=== PATIENT | female | born 1985 | race African-American/Black ===

== ENCOUNTER 2016-08-24 00:46 | Inpatient (IN) | payer MEDICAID, OTHER ==
[2016-08-24] MEDS ORDERED: SUBLIMAZE IV ONE (03:42)
[2016-08-24] MEDS ORDERED: STADOL IV PRN (03:44)
[2016-08-24] MEDS ORDERED: LACTATED RINGERS 1,000 ML IV SCH (04:00)
[2016-08-24 04:02] LABS: Hematocrit 39.9 % (30.3-42.9); Hemoglobin 13.3 gm/dl (10.1-14.3); Mean Corpuscular HGB Conc 33 % (30-34); Mean Corpuscular Hemoglobin 31 pg (28-32); Mean Corpuscular Volume 94 fl (79-97); Platelet Count 199 K/mm3 (140-440); Red Blood Count 4.26 M/mm3 (3.65-5.03); Red Cell Distribution Width 14.5 % (13.2-15.2); White Blood Count 10.7 K/mm3 (4.5-11.0)
[2016-08-24] MEDS ORDERED: PITOCin/NS 20 UNIT/1000ML DRIP 20,000 MILLIUNITS/1,000 ML BAG IV ONE (05:04)
[2016-08-24] MEDS ORDERED: XYLOCAINE 2% INFILTRATI ONE ×2 (05:22→05:31)
--- NOTE | 2016-08-24 05:57 | History and Physical Report ---
History of Present Illness Date of examination: 08/24/16 Date of admission: 08/24/16 03:46 Chief complaint: Painful contractions History of present illness: 31-year-old at 38+6 weeks presents in active labor, she is a lifecycle OBGYN patient. course has been unremarkable per patient, is GBS positive. Past History Past Medical History: no pertinent history Past Surgical History: no surgical history [employer] History: denies: cancer, chlamydia, gonorrhea, hepatitis B, hepatitis C, herpes, HIV, syphilis Social history: , full code. denies: smoking, alcohol abuse, prescription drug abuse, IV drug use - Obstetrical History Expected Date of Delivery: 09/01/16 Actual Gestation: 38 Week(s) 6 Day(s) : 3 Para: 2 Medications and Allergies Allergies Allergy/AdvReac Type Severity Reaction Status Date / Time No Known Allergies Allergy Verified 01/05/13 22:09 Home Medications Medication Instructions Recorded Confirmed Last Taken Type Ibuprofen [Motrin] 800 mg PO TID PRN #60 tablet 03/03/13 Unknown Rx Active Meds: Active Medications Butorphanol Tartrate (Stadol) 2 mg IV Q2H PRN PRN Reason: Labor Pain Lactated Ringer's (Lactated Ringers) 1,000 mls @ 125 mls/hr IV DIRECT PRAMOD Last Admin: 08/24/16 04:22 Dose: 125 mls/hr Review of Systems Constitutional: no fever, no chills Cardiovascular: no chest pain, no syncope, no lightheadedness, no shortness of breath, no dyspnea on exertion, no paroxysmal nocturnal dyspnea Respiratory: no hemoptysis, no shortness of breath, no dyspnea on exertion Gastrointestinal: abdominal pain (Painful regular contractions), no nausea, no vomiting Genitourinary: no vaginal bleeding, no vaginal discharge, no leakage of fluid - Vital Signs Vital signs: Vital Signs Pulse BP 81 109/71 08/24/16 01:00 08/24/16 01:00 Temp Pulse Resp BP Pulse Ox 84 121/69 08/24/16 05:47 08/24/16 05:47 - Physical Exam Abdomen: Positive: normal appearance, soft. Negative: distention, tenderness, guarding, rigidity Genitourinary (Female): Positive: normal external genitalia Vulva: both: normal Uterus: Positive: enlarged (EFW ~ 3300) Adnexa: both: normal Extremities: Positive: normal - Obstetrical FHR: category 1 Cervical Dilatation: 10 Results Result Diagrams: 08/24/16 03:43 All other labs normal. Assessment and Plan A: 31 y/o at 38+6 wks in active labour -Cat 1 tracing P: -Patient progressed adequately and delivered -Continue routine care - Patient Problems (1) 38 weeks gestation of Current Visit: Yes Status: Acute (2) Active labor at term Current Visit: Yes Status: Acute
[2016-08-24] MEDS ORDERED: NORCO 5/325 PO PRN (06:03)
[2016-08-24] MEDS ORDERED: DERMOPLAST TP PRN (06:03)
[2016-08-24] MEDS ORDERED: BENADRYL PO PRN (06:03)
[2016-08-24] MEDS ORDERED: DULCOLAX PR PRN (06:03)
[2016-08-24] MEDS ORDERED: LANSINOH TP PRN (06:03)
[2016-08-24] MEDS ORDERED: ZOFRAN IV PRN (06:03)
[2016-08-24] MEDS ORDERED: ANUCORT-HC PR PRN (06:03)
[2016-08-24] MEDS ORDERED: TYLENOL PO PRN (06:03)
[2016-08-24] MEDS ORDERED: PHENERGAN PO PRN (06:03)
[2016-08-24] MEDS ORDERED: MILK OF MAGNESIA PO PRN (06:03)
[2016-08-24] MEDS ORDERED: PHENERGAN PR PRN (06:03)
--- NOTE | 2016-08-24 06:03 | Procedure Note ---
OB Delivery Note - Delivery Date of Delivery: 08/24/16 Surgeon: SURAJ VALERIO Estimated blood loss: 300cc - Vaginal Delivery presentation: vertex, compound Delivery position: OA Intrapartum events: precipitous labor- <3hr Delivery induction: none Delivery monitor: external FHT, external uterine Route of delivery: Delivery placenta: spontaneous Delivery cord: 3 umbilical vessels Episiotomy: none Delivery laceration: 3rd degree Delivery repair: vicryl - A at 1 minute: 8 at 5 minutes: 9 Gender: Female (Del @ 05:21, weight is 6#15 or 3175 g)
[2016-08-24] MEDS ORDERED: PITOCin/NS 20 UNIT/1000ML DRIP 20 UNITS/1,000 ML BAG IV SCH (07:00)
[2016-08-24] MEDS ORDERED: SENOKOT S PO SCH (07:00)
[2016-08-24] MEDS ORDERED: SODIUM CHLORIDE FLUSH SYRINGE 10 ML IV NR (07:00)
[2016-08-24] MEDS: TUCKS PAD TP PRN (08:46)
[2016-08-24] MEDS: FEOSOL PO SCH ×2 (10:19→22:19)
[2016-08-24] MEDS: COLACE PO SCH ×2 (10:19→22:19)
[2016-08-24] MEDS: PRENATAL VITAMIN PO SCH (10:19)
[2016-08-24] MEDS: MOTRIN PO SCH ×2 (12:04→18:17)
[2016-08-24 22:06] LABS: Hematocrit 36.5 % (30.3-42.9); Hemoglobin 11.9 gm/dl (10.1-14.3)
[2016-08-25] MEDS: MOTRIN PO SCH ×4 (00:09→17:21)
[2016-08-25] MEDS: TUCKS PAD TP PRN (05:16)
[2016-08-25] MEDS ORDERED: M-M-R II VACCINE SUB-Q ONE (06:03)
[2016-08-25] MEDS ORDERED: BOOSTRIX IM ONE (06:03)
[2016-08-25] MEDS: FEOSOL PO SCH (09:53)
[2016-08-25] MEDS: COLACE PO SCH (09:53)
[2016-08-25] MEDS: PRENATAL VITAMIN PO SCH (09:53)
--- NOTE | 2016-08-25 11:28 | Progress Note ---
Assessment and Plan A: PP Day #1 Stable P: Follow routine orders Plans Nexplanon for Contraception D/C Home today per patient request RTO in 6 Weeks Subjective - Subjective Date of service: 08/25/16 Patient reports: appetite normal, voiding normally, pain well controlled, flatus , ambulating normally : doing well, bottle feeding (and ) Objective - Vital Signs Latest vital signs: Vital Signs Temp Pulse Pulse Pulse Resp BP BP 08/25/16 08:05 97.6 F 61 20 98/53 08/25/16 00:40 98.4 F 75 18 95/45 08/24/16 16:20 98.3 F 84 20 100/68 08/24/16 12:05 97.5 F L 70 18 90/40 Intake and Output 08/24/16 08/25/16 08/25/16 22:59 06:59 14:59 Intake Total 240 240 120 Output Total 500 Balance -260 240 120 Intake: Oral 240 240 120 Output: Urine 500 Void 500 Other: Total, Intake Amount 120 120 120 Total, Output Amount 500 Voiding Method Toilet # Voids Void 1 1 1 - Exam Breasts: Present: normal Cardiovascular: Present: Regular rate Lungs: Present: Clear to auscultation, Normal air movement Abdomen: Present: normal appearance, soft, normal bowel sounds Uterus: Present: normal, firm, fundal height below umbilicus Extremities: Present: normal
--- NOTE | 2016-08-25 11:29 | Discharge Summary ---
Providers - Providers Date of Admission: 08/24/16 03:46 Date of discharge: 08/25/16 Attending physician: ALLYSON TELLO MD Primary care physician: ALLYSON TELLO MD Hospitalization Reason for admission: active labor Delivery: Episiotomy: none Laceration: 3rd degree Other procedures: none complications: none Discharge diagnosis: IUP at term delivered baby: female Condition at discharge: Good Disposition: DISCHARGED TO HOME OR SELFCARE Plan - Discharge Medications Prescriptions: HYDROcodone/APAP 5-325 [[facility] 5/325] 1 each PO Q6HR PRN #10 tablet PRN Reason: Pain Ibuprofen [Motrin 600 MG tab] 600 mg PO Q8H PRN #30 tablet PRN Reason: Pain Multivitamin with Iron [Multivitamins with Iron] 1 each PO DAILY #30 tablet - Provider Discharge Summary Activity: routine, no sex for 6 weeks, no heavy lifting 4 weeks, no strenuous exercise Diet: routine Instructions: routine Additional instructions: [] Smoking cessation referral if applicable(refer to patient education folder for contact #) [] Refer to [facility]'s [facility] [address] Booklet Call your doctor immediately for: * Fever > 100.5 * Heavy vaginal bleeding ( >1 pad per hour) * Severe persistent headache * Shortness of breath * Reddened, hot, painful area to leg or breast * Drainage or odor from incision. * Keep incision clean and dry at all times and follow doctor's instructions regarding bathing/showering - Follow up plan Follow up: ABIOLA WATERMAN CNM [Advanced Practice Nurse] - 6 Weeks
[2016-08-25 17:35] VITALS: BP 91/60
== END 2016-08-25 18:20 | disposition home or self-care (01) | DRG 988 ==
LOC: TRG 00:46 → LD 03:46 → OB 08:32
PROVIDERS: ADMIT Obstetrics & Gynecology; ATTEND Obstetrics & Gynecology
PROC: 10E0XZZ Delivery of Products of Conception, External Approach (ICD-10-PCS; principal; 2016-08-24)
PROC: 0DQR0ZZ Repair Anal Sphincter, Open Approach (ICD-10-PCS; 2016-08-24)
DX: O62.3 Precipitate labor (principal); O70.20 Third degree perineal laceration during delivery, unspecified; O99.824 Streptococcus B carrier state complicating childbirth; Z37.0 Single live birth; Z3A.38 38 weeks gestation of pregnancy
CPT/HCPCS: 36415; 85014; 85018; 85027; 86850; 86900; 86901; 90471; 90707; 90715; 96372; 99211; A6250; G0463; J2590; J3010; J7120